=== PATIENT | male | born 1955 | race Caucasian/White ===

== ENCOUNTER 2021-05-28 11:11 | Observation (INO) | payer MEDICARE ==
[2021-05-28] MEDS ORDERED: PANTOPRAZOLE 40 MG/10 ML VIAL IVP STA (11:25)
[2021-05-28] MEDS ORDERED: HYDROmorphone 0.5 MG/0.5 ML SYRINGE IVP STA (11:25)
[2021-05-28] MEDS ORDERED: ONDANSETRON 4 MG/2 ML VIAL IVP STA (11:25)
--- NOTE | 2021-05-28 11:28 | ED ---
General Adult HPI - General Chief complaint: Chest Pain Stated complaint: Chest pain Time Seen by Provider: 05/28/21 11:18 Source: patient, EMS, RN notes reviewed, old records reviewed Mode of arrival: EMS Limitations: no limitations - History of Present Illness Initial comments: 66-year-old male presented for evaluation chest pain, nausea vomiting. Patient has had symptoms for the past 2 days. This initially began as some mild abdominal discomfort and vomiting. There's been no diarrhea. No fever. He developed left-sided upper chest pain which is been present throughout the past 24 hours. Patient states that he does follow with cardiology outside health system, [facility]. He is currently on aspirin, no anticoagulation. He has a pacemaker defibrillator. - Related Data Home Medications Medication Instructions Recorded Confirmed Atorvastatin [Lipitor] 20 mg PO DAILY 05/28/21 05/28/21 Carvedilol [Coreg] 12.5 mg PO BID 05/28/21 05/28/21 Omeprazole [PriLOSEC] 20 mg PO AC-BRKFST 05/28/21 05/28/21 lisinopriL 10 mg PO DAILY 05/28/21 05/28/21 Allergies Allergy/AdvReac Type Severity Reaction Status Date / Time Penicillins Allergy Unknown Verified 05/28/21 12:43 Childhood codeine AdvReac Vomiting Verified 05/28/21 12:43 Review of Systems ROS Statement: Those systems with pertinent positive or pertinent negative responses have been documented in the HPI. ROS Other: All systems not noted in ROS Statement are negative. Past Medical History Past Medical History: Hyperlipidemia, Hypertension, Myocardial Infarction ([place]) History of Any Multi-Drug Resistant Organisms: None Reported Past Surgical History: Heart Catheterization With Stent Additional Past Surgical History / Comment(s): pacer/defib Smoking Status: Current every day smoker Past Alcohol Use History: None Reported Past Drug Use History: None Reported General Exam Limitations: no limitations Course Vital Signs 05/28/21 11:14 Temperature 98.0 F Pulse Rate 50 L Respiratory 16 Rate Blood Pressure 148/93 O2 Sat by Pulse 100 Oximetry EKG Findings - EKG Comments: EKG Findings:: EKG: Atrial paced rhythm, rate of 50, NE interval 146, QRS duration 132, QTC 373, no ST segment elevation Medical Decision Making - Medical Decision Making 58-year-old male presenting with chief complaint of chest pain and vomiting. Patient's EKG is paced rhythm. He has history of previous myocardial infarction but states he has not had stenting or coronary artery bypass grafting. Chest x-ray is clear. X-ray of the abdomen was performed secondary to vomiting, this is negative for obstruction or intraperitoneal free air. He has a normal CBC, normal CMP, negative initial troponin. He will be kept in observation for se rial cardiac enzymes, telemetry, cardiology consultation. Case discussed with Dr. Kincaid - Lab Data Result diagrams: 05/28/21 11:24 05/28/21 11:24 Lab Results 05/28/21 05/28/21 05/28/21 Range/Units 11:24 11:24 11:24 WBC 12.5 H (3.8-10.6) k/uL RBC 5.08 (4.30-5.90) m/uL Hgb 16.6 (13.0-17.5) gm/dL Hct 47.4 (39.0-53.0) % MCV 93.4 (80.0-100.0) fL MCH 32.7 (25.0-35.0) pg MCHC 35.0 (31.0-37.0) g/dL RDW 13.0 (11.5-15.5) % Plt Count 236 (150-450) k/uL MPV 7.7 Neutrophils % 79 % Lymphocytes % 13 % Monocytes % 4 % Eosinophils % 2 % Basophils % 1 % Neutrophils # 9.9 H (1.3-7.7) k/uL Lymphocytes # 1.6 (1.0-4.8) k/uL Monocytes # 0.6 (0-1.0) k/uL Eosinophils # 0.2 (0-0.7) k/uL Basophils # 0.1 (0-0.2) k/uL PT 10.9 (9.0-12.0) sec INR 1.0 (<1.2) APTT 25.5 (22.0-30.0) sec Sodium 137 (137-145) mmol/L Potassium 4.5 (3.5-5.1) mmol/L Chloride 103 (98-107) mmol/L Carbon Dioxide 25 (22-30) mmol/L Anion Gap 9 mmol/L BUN 23 H (9-20) mg/dL Creatinine 0.86 (0.66-1.25) mg/dL Est GFR (CKD-EPI)AfAm >90 (>60 ml/min/1.73 sqM) Est GFR (CKD-EPI)NonAf 89 (>60 ml/min/1.73 sqM) Glucose 120 H (74-99) mg/dL Calcium 9.8 (8.4-10.2) mg/dL Magnesium 1.8 (1.6-2.3) mg/dL Total Bilirubin 1.4 H (0.2-1.3) mg/dL AST 34 (17-59) U/L ALT 15 (4-49) U/L Alkaline Phosphatase 105 (38-126) U/L Troponin I (0.000-0.034) ng/mL Total Protein 7.0 (6.3-8.2) g/dL Albumin 4.2 (3.5-5.0) g/dL 05/28/21 Range/Units 11:24 WBC (3.8-10.6) k/uL RBC (4.30-5.90) m/uL Hgb (13.0-17.5) gm/dL Hct (39.0-53.0) % MCV (80.0-100.0) fL MCH (25.0-35.0) pg MCHC (31.0-37.0) g/dL RDW (11.5-15.5) % Plt Count (150-450) k/uL MPV Neutrophils % % Lymphocytes % % Monocytes % % Eosinophils % % Basophils % % Neutrophils # (1.3-7.7) k/uL Lymphocytes # (1.0-4.8) k/uL Monocytes # (0-1.0) k/uL Eosinophils # (0-0.7) k/uL Basophils # (0-0.2) k/uL PT (9.0-12.0) sec INR (<1.2) APTT (22.0-30.0) sec Sodium (137-145) mmol/L Potassium (3.5-5.1) mmol/L Chloride (98-107) mmol/L Carbon Dioxide (22-30) mmol/L Anion Gap mmol/L BUN (9-20) mg/dL Creatinine (0.66-1.25) mg/dL Est GFR (CKD-EPI)AfAm (>60 ml/min/1.73 sqM) Est GFR (CKD-EPI)NonAf (>60 ml/min/1.73 sqM) Glucose (74-99) mg/dL Calcium (8.4-10.2) mg/dL Magnesium (1.6-2.3) mg/dL Total Bilirubin (0.2-1.3) mg/dL AST (17-59) U/L ALT (4-49) U/L Alkaline Phosphatase (38-126) U/L Troponin I <0.012 (0.000-0.034) ng/mL Total Protein (6.3-8.2) g/dL Albumin (3.5-5.0) g/dL Disposition Clinical Impression: Chest pain Disposition: ADMITTED IP TO THIS [facility] Condition: Stable Is patient prescribed a controlled substance at d/c from ED?: No Referrals: Nonstaff,Physician [Primary Care Provider] - 1-2 days Decision to Admit Reason: Admit from EC Decision Date: 05/28/21 Decision Time: 12:50
[2021-05-28 11:38] LABS: Basophils # (A) 0.1 k/uL (0-0.2); Basophils % (A) 1 %; Eosinophils # (A) 0.2 k/uL (0-0.7); Eosinophils % (A) 2 %; HCT 47.4 % (39.0-53.0); HGB 16.6 gm/dL (13.0-17.5); Lymphocytes # (A) 1.6 k/uL (1.0-4.8); Lymphocytes % (A) 13 %; MCH 32.7 pg (25.0-35.0); MCV 93.4 fL (80.0-100.0); Mean Platelet Volume 7.7; Monocytes # (A) 0.6 k/uL (0-1.0); Monocytes % (A) 4 %; Neutrophils # (A) 9.9 k/uL (1.3-7.7); Neutrophils % (A) 79 %; Platelet Count 236 k/uL (150-450); RBC 5.08 m/uL (4.30-5.90); WBC 12.5 k/uL (3.8-10.6)
[2021-05-28 12:05] LABS: Partial Thromboplastin Time 25.5 sec (22.0-30.0); Prothrombin Time 10.9 sec (9.0-12.0)
[2021-05-28 12:06] LABS: ALT 15 U/L (4-49); African American GFR (CKD) >90 (>60 ml/min/1.73 sqM); Albumin 4.2 g/dL (3.5-5.0); Anion Gap 9 mmol/L; Blood Urea Nitrogen 23 mg/dL (9-20); Calcium 9.8 mg/dL (8.4-10.2); Carbon Dioxide 25 mmol/L (22-30); Chloride 103 mmol/L (98-107); Glucose 120 mg/dL (74-99); Non-African American GFR(CKD) 89 (>60 ml/min/1.73 sqM); Sodium 137 mmol/L (137-145); Total Bilirubin 1.4 mg/dL (0.2-1.3)
[2021-05-28 12:09] LABS: AST 34 U/L (17-59); Alkaline Phosphatase 105 U/L (38-126); Potassium 4.5 mmol/L (3.5-5.1)
[2021-05-28 12:10] LABS: Magnesium 1.8 mg/dL (1.6-2.3)
--- NOTE | 2021-05-28 12:26 | XR ---
EXAMINATION TYPE: XR KUB DATE OF EXAM: 05/28/2021 COMPARISON: NONE HISTORY: Pain TECHNIQUE: Single supine KUB image of the abdomen is obtained FINDINGS: Small bowel demonstrates no evidence for dilatation or air fluid levels. Gas and fecal material is seen in non-distended colon. No convincing evidence for pneumoperitoneum. No unusual calcifications. The lung bases are clear. The osseous structures are intact. IMPRESSION: 1. Overall nonobstructive bowel gas pattern.
--- NOTE | 2021-05-28 12:27 | XR ---
EXAMINATION TYPE: XR chest 2V DATE OF EXAM: 05/28/2021 COMPARISON: NONE HISTORY: Shortness of breath TECHNIQUE: Frontal and lateral views of the chest are obtained. FINDINGS: Scattered senescent parenchymal changes noted. Hyperinflation compatible with COPD. No evidence for infiltrate. No evidence for atelectasis. Heart size is stable. Mediastinal structures are stable and grossly unremarkable. No evidence for hilar prominence. Degenerative changes dorsal spine. IMPRESSION: 1. No evidence for acute pulmonary disease.
[2021-05-28] MEDS ORDERED: bisacodyL 5 MG TABLET.DR PO PRN (12:43)
[2021-05-28] MEDS ORDERED: DOCUSATE 100 MG CAP PO PRN (12:43)
[2021-05-28] MEDS ORDERED: ACETAMINOPHEN TAB 325 MG TAB PO PRN (12:43)
[2021-05-28] MEDS ORDERED: NALOXONE 0.4 MG/ML 1 ML VIAL IV PRN (12:43)
[2021-05-28] MEDS ORDERED: MORPHINE SULFATE 4 MG/ML SYRINGE IV PRN (12:43)
[2021-05-28] MEDS ORDERED: NITROGLYCERIN SL TABS 0.4 MG TAB SUBLINGUAL PRN (12:45)
--- NOTE | 2021-05-28 14:03 | P.CRDCN ---
History of Present Illness History of present illness: HISTORY OF PRESENTING ILLNESS This is a pleasant 66-year-old male past medical history significant for hypertension, dyslipidemia, chronic nicotine dependence, he states he had an NE with no stents placed and denies CABG, cardiomyopathy (has been told his heart muscle is weak) s/p pacemaker implantation. He follows in the office with Dr. Sinha in the [place] area. We have been asked to see in consultation for chest pain. Patient is seen and examined at bedside, family at bedside. Patient states he has been having mid sternal and left sided chest pain for 2 days. Describes it as a pressure. Radiating to back. Non-exertional. He states he was given sublingual nitroglycerin in the EMS, does not think it really improved his pain. He had associated shortness of breath. He also has been having cough, diaphoresis, chills, abdominal pain, nausea and vomiting, some lightheadedness. Denies syncope. He denies symptoms of orthopnea or PND, no lower extremity edema. He denies history of diabetes. Family history includes father had an NE in his 50s. He currently smokes cigarretes 1PPD and occasionally smokes marijuana. He also endorses unintentional weightloss, unknown amount. He denies alcohol use or other illicit drug use. DIAGNOSTICS EKG reveals atrial paced rhythm, right bundle branch block, T wave inversion in anteriolateral leads. No prior EKG to compare. KUB- gas and fecal material seen, non-distended, nonobstructive bowel gas pattern. Last Cardiac Catheterization uknown at this time Chest xray no acute cardiopulmonary process. Laboratory reviewed, WBC 12.5, Hgb 16.6, Plt 236, Sodium 137, K 45, BUN 23, sCr 0.86, Mag 1.8, troponin negative x 1, covid-19 PCR negative Current home medications include aspirin, Lisinopril, atorvastatin, carvedilol and omeprazole. REVIEW OF SYSTEMS At the time of my exam: CONSTITUTIONAL: +fever +chills CARDIOVASCULAR: + chest pain, +shortness of breath, Denies orthopnea, PND or palpitations. RESPIRATORY: +Cough. GASTROINTESTINAL: + abdominal pain, +nausea +vomiting, Denies diarrhea, constipation MUSCULOSKELETAL: Denies myalgias. NEUROLOGIC: Denies numbness, tingling, headacbe or weakness. ENDOCRINE: Denies fatigue, weight change, polydipsia or polyurina. GENITOURINARY: Denies burning, hematuria or urgency with micturation. HEMATOLOGIC: Denies history of anemia or bleeding. PHYSICAL EXAMINATION BP 148/93 HR 50 afebrile, maintaining oxygen saturations on room air. CONSTITUTIONAL: No apparent distress. HEENT: Head is normocephalic. Pupils are equal, round. Sclerae anicteric. Mucous membranes of the mouth are moist. No JVD. No carotid bruit. CHEST EXAMINATION: Lungs are clear to auscultation. No chest wall tenderness is noted on palpation or with deep breathing. HEART EXAMINATION: Regular rate and rhythm. S1, S2 heard. Systolic murmur noted, No gallops or rub. ABDOMEN: Soft,Tenderness in the epigastric abdomen. Positive bowel sounds. EXTREMITIES: 2+ peripheral pulses, no lower extremity edema and no calf tenderness. SKIN: warm, dry NEUROLOGIC EXAMINATION: Patient is awake, alert and oriented x3. ASSESSMENT Chest pain, troponin negative x 1 Abdominal pain, nausea, vomiting Hypertension Dyslipidemia Chronic nicotine dependence History of NE- no stents per patient Cardiomyopathy (has been told his heart muscle is weak) s/p pacemaker implantation. Ischemic vs non-ischemic -awaiting records from patient's exchange mechanic. GERD PLAN -Obtain 2D echocardiogram and doppler study to assess cardiac structure and function. -Trend troponin -Repeat EKG -Cardiac telemetry -Will obtain records from Dr. Sinha office -Continue home cardiac medications aspirin, statin, carvedilol and lisinopril -NPO at midnight pending workup and outpatient records -Smoking cessation discussed and highly recommended. -Further recommendations pending clinical course. Thank you kindly for this consultation. Nurse Practitioner note has been reviewed, I agree with a documented findings and plan of care. Patient was seen and examined. Past Medical History Past Medical History: Hyperlipidemia, Hypertension, Myocardial Infarction ([place]) History of Any Multi-Drug Resistant Organisms: None Reported Past Surgical History: Heart Catheterization With Stent Additional Past Surgical History / Comment(s): pacer/defib Smoking Status: Current every day smoker Past Alcohol Use History: None Reported Past Drug Use History: None Reported Medications and Allergies Home Medications Medication Instructions Recorded Confirmed Type Atorvastatin [Lipitor] 20 mg PO DAILY 05/28/21 05/28/21 History Carvedilol [Coreg] 12.5 mg PO BID 05/28/21 05/28/21 History Omeprazole [PriLOSEC] 20 mg PO AC-BRKFST 05/28/21 05/28/21 History lisinopriL 10 mg PO DAILY 05/28/21 05/28/21 History Allergies Allergy/AdvReac Type Severity Reaction Status Date / Time Penicillins Allergy Unknown Verified 05/28/21 12:43 Childhood codeine AdvReac Vomiting Verified 05/28/21 12:43 Physical Exam Vitals: Vital Signs Temp Pulse Resp BP Pulse Ox 05/28/21 13:05 53 L 16 157/104 98 05/28/21 11:14 98.0 F 50 L 16 148/93 100 Intake and Output 05/27/21 05/28/21 05/28/21 22:59 06:59 14:59 Other: Weight 68.039 kg Results 05/28/21 11:24 05/28/21 11:24 Cardiac Enzymes 05/28/21 05/28/21 Range/Units 11:24 11:24 AST 34 (17-59) U/L Troponin I <0.012 (0.000-0.034) ng/mL Coagulation 05/28/21 Range/Units 11:24 PT 10.9 (9.0-12.0) sec APTT 25.5 (22.0-30.0) sec CBC 05/28/21 Range/Units 11:24 WBC 12.5 H (3.8-10.6) k/uL RBC 5.08 (4.30-5.90) m/uL Hgb 16.6 (13.0-17.5) gm/dL Hct 47.4 (39.0-53.0) % Plt Count 236 (150-450) k/uL Comprehensive Metabolic Panel 05/28/21 Range/Units 11:24 Sodium 137 (137-145) mmol/L Potassium 4.5 (3.5-5.1) mmol/L Chloride 103 (98-107) mmol/L Carbon Dioxide 25 (22-30) mmol/L BUN 23 H (9-20) mg/dL Creatinine 0.86 (0.66-1.25) mg/dL Glucose 120 H (74-99) mg/dL Calcium 9.8 (8.4-10.2) mg/dL AST 34 (17-59) U/L ALT 15 (4-49) U/L Alkaline Phosphatase 105 (38-126) U/L Total Protein 7.0 (6.3-8.2) g/dL Albumin 4.2 (3.5-5.0) g/dL Current Medications Generic Name Dose Route Start Last Admin Trade Name Freq PRN Reason Stop Dose Admin Acetaminophen 650 mg 05/28/21 12:43 Acetaminophen Tab 325 Mg Tab PO Q6HR PRN Mild Pain or Fever > 100.5 Aspirin 81 mg 05/29/21 09:00 Aspirin 81 Mg PO DAILY [facility] Atorvastatin Calcium 20 mg 05/29/21 09:00 Atorvastatin 20 Mg Tab PO DAILY [facility] Bisacodyl 5 mg 05/28/21 12:43 Bisacodyl 5 Mg Tablet.Dr PO DAILY PRN Constipation Carvedilol 12.5 mg 05/28/21 17:30 Carvedilol 12.5 Mg Tab PO BID-W/MEALS [facility] Docusate Sodium 100 mg 05/28/21 12:43 Docusate 100 Mg Cap PO BID PRN Constipation Lisinopril 10 mg 05/29/21 09:00 Lisinopril 10 Mg Tab PO DAILY [facility] Morphine Sulfate 4 mg 05/28/21 12:43 Morphine Sulfate 4 Mg/Ml Syringe IV Q4HR PRN Severe Pain Naloxone HCl 0.2 mg 05/28/21 12:43 Naloxone 0.4 Mg/Ml 1 Ml Vial IV Q2M PRN Opioid Reversal Nitroglycerin 0.4 mg 05/28/21 12:45 Nitroglycerin Sl Tabs 0.4 Mg Tab SUBLINGUAL Q5M PRN Chest Pain Non-Formulary Medication 20 mg 05/29/21 07:30 Omeprazole PO AC-BRKFST [facility] Intake and Output 05/27/21 05/28/21 05/28/21 22:59 06:59 14:59 Other: Weight 68.039 kg Patient Weight 05/29/21 06:59 Weight 68.039 kg 05/28/21 11:24 05/28/21 11:24
[2021-05-28] MEDS: carvediloL 12.5 MG TAB PO SCH (17:09)
--- NOTE | 2021-05-28 17:21 | P.HPIM ---
History of Present Illness H&P Date: 05/28/21 Chief Complaint: Chest pain 66 year old man with history of [place] but no PCI or bypass surgery, AICD, cardiomyopathy, HTN, HLD, active smoker presented with chest pain. Patient says that his pain started two days ago, but yesterday it resolved on its own. Then this morning, he had return of the pain after eating some oatmeal, and became concerned. His pain feels like a burning across the left chest and left upper quadrant of abdomen. Radiates to back. He had associated nausea and bilious vomiting. His ROS is notable for 20lb unintentional weight loss. Denies fevers , chills, palps, syncope, cough, dyspnea, constipation, diarrhea, numbness/weakness. Afebrile, HDS. EKG with atrial paced rhythm, RBBB + LAFB, TWI in leads I, II, III, aVF, V2-V6 (infero-lateral distribution) with a near wellens pattern in V2- V3. CXR without cardiopulmonary pathology. CBC with mild leuko, Chems/LFTs unremarkable. Trop negative. Review of Systems All Systems reviewed and pertinent positives and negatives noted in HPI, all other symptoms are negative Past Medical History Past Medical History: CVA/TIA, Hyperlipidemia, Hypertension, Myocardial Infarction ([place]) Additional Past Medical History / Comment(s): per pt melva pt heart works at 25%. Last Myocardial Infarction Date:: 2014 History of Any Multi-Drug Resistant Organisms: None Reported Past Surgical History: AICD, Heart Catheterization Additional Past Surgical History / Comment(s): pacer/defib Past Anesthesia/Blood Transfusion Reactions: No Reported Reaction Type of Cardiac Device: Permanent Pacemaker, AICD Device Placement Date:: 2014 Past Psychological History: No Psychological Hx Reported Smoking Status: Current every day smoker Past Alcohol Use History: None Reported Past Drug Use History: None Reported Medications and Allergies Home Medications Medication Instructions Recorded Confirmed Type Atorvastatin [Lipitor] 20 mg PO DAILY 05/28/21 05/28/21 History Carvedilol [Coreg] 12.5 mg PO BID 05/28/21 05/28/21 History Omeprazole [PriLOSEC] 20 mg PO AC-BRKFST 05/28/21 05/28/21 History lisinopriL 10 mg PO DAILY 09/23/21 09/23/21 History Allergies Allergy/AdvReac Type Severity Reaction Status Date / Time Penicillins Allergy Unknown Verified 05/28/21 12:43 Childhood codeine AdvReac Vomiting Verified 05/28/21 12:43 Physical Exam Osteopathic Statement: *. No significant issues noted on an osteopathic structural exam other than those noted in the History and Physical/Consult. Vitals: Vital Signs Temp Pulse Pulse Resp BP BP Pulse Ox 05/28/21 14:45 97.9 F 59 L 19 162/87 100 05/28/21 14:00 59 L 19 05/28/21 13:05 53 L 16 157/104 98 05/28/21 11:14 98.0 F 50 L 16 148/93 100 Intake and Output 05/28/21 05/28/21 05/28/21 06:59 14:59 22:59 Output Total 300 Balance -300 Output: Urine 300 Other: Voiding Method Urinal Weight 68.039 kg Gen: awake, alert HEENT: normocephalic, atraumatic, good hearing acuity, moist mucous membranes Resp: good air exchange, breathing comfortably with no accessory muscle use, CTAB, no wheezes or crackles CVS: good distal perfusion x 4, RRR, no murmurs appreciable, +AICD in left upper chest GI: soft, NTTP, [place] : no SPT, no CVAT, barraza catheter not present MSK: no pitting edema, no clubbing Neuro: non-focal, moving all extremities Psych: cooperative, euthymic mood Results CBC & Chem 7: 05/28/21 11:24 05/28/21 11:24 Labs: Abnormal Lab Results - Last 24 Hours (Table) 05/28/21 05/28/21 Range/Units 11:24 11:24 WBC 12.5 H (3.8-10.6) k/uL Neutrophils # 9.9 H (1.3-7.7) k/uL BUN 23 H (9-20) mg/dL Glucose 120 H (74-99) mg/dL Total Bilirubin 1.4 H (0.2-1.3) mg/dL Thrombosis Risk Factor Assmnt - Choose All That Apply Any of the Below Risk Factors Present?: No Other Risk Factors: Yes Each Risk Factor Represents 2 Points: Age 61-74 years Other congenital or acquired thrombophilia - If yes, enter type in comment: No Thrombosis Risk Factor Assessment Total Risk Factor Score: 2 Thrombosis Risk Factor Assessment Level: Low Risk Assessment and Plan Assessment: Atypical chest pain Nausea and vomiting -Admit to telemetry -Cardiology consult -Trend troponins -EKG/nitro when necessary -Zofran -Aspirin, statin, Coreg -Echo -Consider GI consult given nausea, vomiting and alarm symptom of weight loss History of [place] Cardiomyopathy with AICD Hypertension Hyperlipidemia Nicotine abuse -Home medications reviewed and reconciled Patient is full code
--- NOTE | 2021-05-28 18:33 | ECHOF ---
Referral Reason:chest pain MEASUREMENTS -------- HEIGHT: 177.8 cm WEIGHT: 68.0 kg BP: 157/104 RVIDd: 3.5 cm (< 3.3) IVSd: 0.8 cm (0.6 - 1.1) LVIDd: 6.3 cm (3.9 - 5.3) LVPWd: 0.9 cm (0.6 - 1.1) IVSs: 1.2 cm LVIDs: 4.6 cm LVPWs: 1.8 cm LA Diam: 4.1 cm (2.7 - 3.8) LAESV Index (A-L): 39.23 ml/m Ao Diam: 3.3 cm (2.0 - 3.7) AV Cusp: 2.1 cm (1.5 - 2.6) MV EXCURSION: 8.649 mm (> 18.000) MV EF SLOPE: 66 mm/s (70 - 150) EPSS: 2.3 cm MV E Alvin: 0.45 m/s MV DecT: 480 ms MV A Alvin: 0.88 m/s MV E/A Ratio: 0.52 RAP: 15.00 mmHg RVSP: 43.56 mmHg FINDINGS -------- Sinus rhythm. Pacerwire seen in RV and RA. This was a technically adequate study. The left ventricle is mildly dilated. Left ventricular wall thickness is normal. Overall left candie tricular systolic function is severely impaired with, an EF between 20 - 25 %. Mid anterior LV wall motion is akinetic. Mid inferoseptal LV wall motion is hypokinetic. Mid anteroseptal LV wall m otion is akinetic. Apical anterior LV wall motion is akinetic. Apical lateral LV wall motion is akinetic. Apical inferior LV wall motion is akinetic. Apical septum LV wall motion is akinetic . The right ventricle is normal in size. LA is moderately dilated 34-39 ml/m2 The right atrial size is normal. Interatrial and interventricular septum intact. There is mild aortic valve sclerosis. Mild mitral annular calcification present. Mild mitral regurgitation is present. The tricuspid valve appears structurally normal. Mild tricuspid regurgitation present. There is m ild pulmonary hypertension. The right ventricular systolic pressure, as measured by Doppler, is 43. 56mmHg. Trace/mild (physiologic) pulmonic regurgitation. The aortic root size is normal. The inferior vena cava is dilated with no significant inspiratory collapse which is consistent estima giovanny right atrial pressure of >15 mmHg. There is no pericardial effusion. CONCLUSIONS -------- 1. Pacerwire seen in RV and RA. 2. The left ventricle is mildly dilated. 3. Overall left ventricular systolic function is severely impaired with, an EF between 20 - 25 %. 4. Mid anterior LV wall motion is akinetic. 5. Mid inferoseptal LV wall motion is hypokinetic. 6. Mid anteroseptal LV wall motion is akinetic. 7. Apical anterior LV wall motion is akinetic. 8. Apical lateral LV wall motion is akinetic. 9. Apical inferior LV wall motion is akinetic. 10. Apical septum LV wall motion is akinetic. 11. LA is moderately dilated 34-39 ml/m2 12. There is mild aortic valve sclerosis. 13. Mild mitral annular calcification present. 14. Mild mitral regurgitation is present. 15. Mild tricuspid regurgitation present. 16. There is mild pulmonary hypertension. 17. Trace/mild (physiologic) pulmonic regurgitation. 18. The inferior vena cava is dilated with no significant inspiratory collapse which is consistent es timated right atrial pressure of >15 mmHg. 19. There is no pericardial effusion. MACHINE [employer] WORKER: GENESIS Pantoja
[2021-05-29] MEDS: lisinopriL 10 MG TAB PO SCH ×2 (02:19→07:39)
[2021-05-29] MEDS ORDERED: PANTOPRAZOLE 40 MG TABLET PO SCH (07:30)
[2021-05-29] MEDS: carvediloL 12.5 MG TAB PO SCH (07:38)
[2021-05-29 08:33] VITALS: BP 100/59; PULSE 61; RESP 19; TEMP 99
[2021-05-29] MEDS ORDERED: ASPIRIN 81 MG PO SCH (09:00)
[2021-05-29] MEDS ORDERED: ATORVASTATIN 20 MG TAB PO SCH (09:00)
[2021-05-29] MEDS ORDERED: lisinopriL 10 MG TAB PO SCH (09:00)
[2021-05-29] MEDS ORDERED: ATORVASTATIN 40 MG TAB PO SCH (09:00)
[2021-05-29 09:05] LABS: Basophils # (A) 0.06 X 10*3/uL (0.00-0.10); Basophils % (A) 0.6 %; Eosinophils # (A) 0.25 X 10*3/uL (0.04-0.35); Eosinophils % (A) 2.4 %; HCT 43.9 % (39.6-50.0); HGB 14.8 g/dL (13.0-17.0); Lymphocytes % (A) 23.8 %; MCH 31.2 pg (27.0-32.0); MCHC 33.7 g/dL (32.0-37.0); MCV 92.6 fL (80.0-97.0); Mean Platelet Volume 10.2 fL (9.5-12.2); Monocytes # (A) 1.01 X 10*3/uL (0.20-1.00); Monocytes % (A) 9.6 %; Neutrophils # (A) 6.67 X 10*3/uL (1.80-7.70); Neutrophils % (A) 63.3 %; Platelet Count 212 X 10*3/uL (140-440); RBC 4.74 X 10*6/uL (4.40-5.60); RDW 12.6 % (11.5-14.5); WBC 10.52 X 10*3/uL (4.50-10.00)
--- NOTE | 2021-05-29 09:06 | P.PN ---
Subjective This is a pleasant 66-year-old male past medical history significant for hypertension, dyslipidemia, chronic nicotine dependence, non-obstructive cor onary artery disease, non-ischemic cardiomyopathy s/p BiV ICD implantation. He follows in the office with EP Dr. iSnha in the [place] area. We have been asked to see in consultation for chest pain. Records obtained from Dr. Sinha's office who is the patient's Certified Flex Endoscope Reprocessor. Patient last followed up in February 2021 -Cardiac catheterization in 2014 was done due to abnormal stress test with moderate to large anterior wall defect suggestive of possible infarct. Cardiac catheterization revealed moderate diffuse coronary artery disease at least 50% involving LAD. Mild to moderate nonobstructive disease involving the left circumflex and mild nonobstructive disease involving the RCA, severely decreased EF of 20%. -Echocardiogram October 2020 with an EF 2530%, severe global hypokinesis, apex akinetic, trace aortic regurgitation, trace to mild mitral regurgitation, mild to moderate tricuspid regurgitation -Patient's device interrogation 03/02/2021 revealed device functioning within normal limits, LV lead remains off to the right bundle branch block, on episode of VT with ATP in December 2020, brief episode of NSVT. 05/29/2021: Patient seen and examined at bedside, no acute distress. Patient denies any further chest pain. He denies shortness of breath, lightheadedness, dizziness, palpitations. Blood pressure 100/59 HR 61 afebrile, maintaining oxygen sa turations on room air. patient is currently maintained on Aspirin 81mg daily, atorvastatin 40 mg daily, lisinopril 10 mg twice a day, carvedilol 12.5 mg twice a day. Echocardiogram reviewed which revealed EF 2025% apical wall akinetic, LA mildly dilated, mild mitral regurgitation mild tricuspid regurgitation PHYSICAL EXAMINATION CONSTITUTIONAL: No apparent distress. HEENT: Neck Supple without JVD CHEST EXAMINATION: Lungs are clear to auscultation. No chest wall tenderness is noted on palpation or with deep breathing. HEART EXAMINATION: Regular rate and rhythm. S1, S2 heard. No gallops or rub. ABDOMEN: Soft,Tenderness in the epigastric abdomen. Positive bowel sounds. EXTREMITIES: 2+ peripheral pulses, no lower extremity edema and no calf tenderness. NEUROLOGIC EXAMINATION: Patient is awake, alert and oriented x3. ASSESSMENT Chest pain, atypical, resolved. troponin negative x 3. Abdominal pain, nausea, vomiting Hypertension Dyslipidemia Chronic nicotine dependence Non-obstructive coronary artery disease Non-ischemic cardiomyopathy Chronic systolic heart failure RBBB GERD PLAN -Echocardiogram reviewed with no significant change from prior, troponin negative x 3, no evidence of acute ischemia on EKG from prior. -Continue home cardiac medications aspirin, statin, carvedilol and lisinopril. If patient hypotensive recommend switching to Lisinopril 5mg BID. -Smoking cessation discussed and highly recommended. -From cardiology respective, patient stable to be discharged home. Recommend close follow up with Dr. Sinha Nurse Practitioner note has been reviewed, I agree with a documented findings and plan of care. Patient was seen and examined. Objective - Vital Signs Vital signs: Vital Signs Temp 98.0 F 05/28/21 11:14 Pulse 53 L 05/28/21 13:05 Resp 16 05/28/21 13:05 BP 157/104 05/28/21 13:05 Pulse Ox 98 05/28/21 13:05 Intake & Output 05/27/21 05/28/21 05/28/21 18:59 06:59 18:59 Weight 68.039 kg - Labs CBC & Chem 7: 05/28/21 11:24 05/28/21 11:24 Labs: Abnormal Lab Results - Last 24 Hours (Table) 05/28/21 05/28/21 Range/Units 11:24 11:24 WBC 12.5 H (3.8-10.6) k/uL Neutrophils # 9.9 H (1.3-7.7) k/uL BUN 23 H (9-20) mg/dL Glucose 120 H (74-99) mg/dL Total Bilirubin 1.4 H (0.2-1.3) mg/dL
[2021-05-29 11:07] VITALS: BMI 21.5
--- NOTE | 2021-05-29 13:06 | P.DS ---
Providers Date of admission: 05/28/21 12:48 Expected date of discharge: 05/29/21 Attending physician: Myriam Kincaid MD Consults: 05/28/21 12:44 Consult Physician Routine Consulting Provider: Damion Jasso Consult Reason/Comments: chest pain Do you want consulting provider notified?: Yes Primary care physician: Physician Nonstaff Hospital Course: Atypical chest pain Nausea and vomiting -Admitted to telemetry with cardiology consult. Troponins were negative. EKG was baseline. Echo did not show any acute changes from prior. Pain spontaneously resolved. Pt had episodes of low BP, however, was asymptomatic from this. Pt discharged home with cardiology f/u and pcp f/u. Regarding nausea, vomiting, and weight loss, I recommended patient see a GI physician of choice to undergo EGD for dyspepsia with alarm symptom of weight loss, and Colonoscopy for cancer screening. History of PR Cardiomyopathy with AICD Hypertension Hyperlipidemia Nicotine abuse -No changes to discharge medications. Assessment: Gen: awake, alert HEENT: normocephalic, atraumatic, good hearing acuity, moist mucous membranes Resp: good air exchange, breathing comfortably with no accessory muscle use, CTAB, no wheezes or crackles CVS: good distal perfusion x 4, RRR, no murmurs appreciable, +AICD in left upper chest GI: soft, NTTP, ND : no SPT, no CVAT, barraza catheter not present MSK: no pitting edema, no clubbing Neuro: non-focal, moving all extremities Psych: cooperative, euthymic mood Patient Condition at Discharge: Good Plan - Discharge Summary Discharge Rx Participant: No New Discharge Prescriptions: New Aspirin 81 mg PO DAILY tab Continue Omeprazole [PriLOSEC] 20 mg PO AC-BRKFST Carvedilol [Coreg] 12.5 mg PO BID lisinopriL 10 mg PO DAILY Changed Atorvastatin [Lipitor] 40 mg PO DAILY #60 tab Discharge Medication List Carvedilol [Coreg] 12.5 mg PO BID 05/28/21 [History] Omeprazole [PriLOSEC] 20 mg PO AC-BRKFST 05/28/21 [History] lisinopriL 10 mg PO DAILY 05/28/21 [History] Aspirin 81 mg PO DAILY tab 05/29/21 [Rx] Atorvastatin [Lipitor] 40 mg PO DAILY #60 tab 05/29/21 [Rx] Follow up Appointment(s)/Referral(s): Seth Sinha MD [REFERRING] - 06/10/21 10:40 am Nonstaff,Physician [Primary Care Provider] - 1-2 days Patient Instructions/Handouts: Chest Pain (DC), How to Stop Smoking (DC), Acute Abdominal Pain (DC) Discharge Disposition: HOME SELF-CARE
[2021-05-29 17:07] LABS: African American GFR (CKD) 89.2 (60.0-200.0); Anion Gap 9.8 mmol/L (4.00-12.00); Calcium 9.2 mg/dL (8.7-10.3); Carbon Dioxide 25.2 mmol/L (21.6-31.8); Chol/HDL Ratio 3.12; Magnesium 1.7 mg/dL (1.5-2.4); Potassium 4.3 mmol/L (3.5-5.5)
== END 2021-05-29 12:39 | disposition home or self-care (01) ==
LOC: EC 11:11 → 6NMEDSUR 12:48
PROVIDERS: ADMIT Internal Medicine; ATTEND Internal Medicine
DX: R07.89 Other chest pain (principal); R11.14 Bilious vomiting; R11.0 Nausea; R10.13 Epigastric pain; I11.0 Hypertensive heart disease with heart failure; I50.22 Chronic systolic (congestive) heart failure; I42.8 Other cardiomyopathies; I45.10 Unspecified right bundle-branch block; I44.4 Left anterior fascicular block; I25.10 Atherosclerotic heart disease of native coronary artery without angina pectoris; E78.5 Hyperlipidemia, unspecified; I08.3 Combined rheumatic disorders of mitral, aortic and tricuspid valves; I95.9 Hypotension, unspecified; I27.20 Pulmonary hypertension, unspecified; I25.2 Old myocardial infarction; K21.9 Gastro-esophageal reflux disease without esophagitis; F17.210 Nicotine dependence, cigarettes, uncomplicated; R63.4 Abnormal weight loss; Z68.21 Body mass index [BMI] 21.0-21.9, adult; Z20.822 Contact with and (suspected) exposure to COVID-19; Z79.82 Long term (current) use of aspirin; Z79.899 Other long term (current) drug therapy; Z88.0 Allergy status to penicillin; Z88.5 Allergy status to narcotic agent; Z86.73 Personal history of transient ischemic attack (TIA), and cerebral infarction without residual deficits; Z95.810 Presence of automatic (implantable) cardiac defibrillator; Z82.49 Family history of ischemic heart disease and other diseases of the circulatory system
CPT/HCPCS: 96375 ×2; 96374; 99285; 36415; 93005; 93306; 80061; 80053; 80048; 83735 ×2; 84484; 85025 ×2; 85610; 85730; 87635; 71046; 74018; G0378 ×2; J2270; J2405; C9113; J1170